=== PATIENT | male | born 1990 | race Caucasian/White ===

== ENCOUNTER 2016-05-02 15:03 | Emergency (ER) | payer OTHER ==
[2016-05-02 15:25] VITALS: BP 147/77; PULSE 76; TEMP 97.6; BMI 46.8
[2016-05-02] MEDS ORDERED: DIPHTH,PERTUSS(ACELL),TET 0.5 ML DISP.SYRIN IM ONE (16:29)
[2016-05-02] MEDS ORDERED: LIDOCAINE 1%/EPI 1:100000 (50 ML MULTI DOSE VIAL) ONE (16:42)
--- NOTE | 2016-05-02 17:02 | PDOC ---
History of Present Illness - General Chief Complaint: Injury Stated Complaint: LT HAND INJURY Time Seen by Provider: 05/02/16 16:04 - History of Present Illness Initial Comments: 05/02/16 16:28 CHIEF COMPLAINT: Laceration to left wrist HISTORY OF PRESENT ILLNESS: 86-year-old male with no past medical history presents to fast track with laceration to left wrist status post accident with kitchen knife. Patient states approximately 2 hours ago he was trying to open a box and accidentally cut himself with a kitchen knife. Patient states that the knife was clean. Patient does not remember when he had a tetanus shot last. No recent travel or sick contacts. PAST MEDICAL HISTORY: Denies past medical history FAMILY HISTORY: Denies SOCIAL HISTORY: Denies tobacco, alcohol, illicit drug use. SURGICAL HISTORY: Denies ALLERGIES: No known drug allergies REVIEW OF SYSTEMS General/Constitutional: Denies fever or chills. Denies weakness. Musculoskeletal: Denies joint or muscle swelling or pain. Denies neck or back pain. Skin: cut to wrist PHYSICAL EXAM General Appearance: Well-appearing, appropriately dressed. No apparent distress , no intoxication. Respiratory/Chest: Lungs CTAB. Cardiovascular: RRR. S1, S2. Lymphatic: No adenopathy, tenderness. Musculoskeletal/Extremities: 1.5 cm superficial laceration to left medial wrist. No tendon involvement, neurovascularly intact. Full ROM to wrist and all fingers. Normal capillary refill, radial pulse 2+. Integumentary: see msk. Appropriate color, dry, warm. No cyanosis, erythema, jaundice or rash 05/02/16 22:20 Past History - Past Medical History Allergies/Adverse Reactions: Allergies Allergy/AdvReac Type Severity Reaction Status Date / Time No Known Allergies Allergy Verified 05/02/16 15:25 Home Medications: Ambulatory Orders NK [No Known Home Medication] 05/02/16 - Psycho/Social/Smoking Cessation Hx Anxiety: No Suicidal Ideation: No Smoking History: Never smoked Have you smoked in the past 12 months: No Information on smoking cessation initiated: No Hx Alcohol Use: Yes Drug/Substance Use Hx: No Substance Use Type: None *Physical Exam - Vital Signs Last Vital Signs Temp Pulse Resp BP Pulse Ox 97.6 F 76 18 147/77 97 05/02/16 15:22 05/02/16 15:22 05/02/16 15:22 05/02/16 15:22 05/02/16 15:22 Procedures - Consent Consent obtained: Verbal - Laceration/Wound Repair Left Medial Distal Wrist Wound Length: to 2.5 cm Wound Explored: clean, no foreign body present Wound's Depth, Shape: superficial Irrigated w/ Saline: Yes Betadine Prep: Yes Anesthesia: 1% Lidocaine w/ Epi Amount of Anesthetic (ccs): 3 Wound Repaired With: Sutures Suture Size/Type: 4:0 Number of Sutures: 3 Sterile Dressing Applied: Yes (telfa non adherent dressing, dry gauze) Medical Decision Making - Medical Decision Making 05/02/16 17:04 26 yo M with no PMH presents to ED with lac to left wrist -Tdap 0.5 mL IM -suture repair (see procedure note) Advised patient to keep wound site clean and dry for 24 hours, wash with mild soap after. Advised patient to return in 7 -10 days for stitch removal. Advised patient of signs and symptoms for return to ER. Patient verbalized understanding and agrees to plan. *DC/Admit/Observation/Transfer Diagnosis at time of Disposition: Laceration of wrist Qualifiers: Encounter type: initial encounter Laterality: left Qualified Code(s): S61.512A - Laceration without foreign body of left wrist, initial encounter - Discharge Dispostion Disposition: HOME Condition at time of disposition: Stable Admit: No - Referrals Referrals: Wilda Montes [Primary Care Provider] - - Patient Instructions Printed Discharge Instructions: DI for Laceration Repair Additional Instructions: As discussed please keep clean and dry for the next 24 hours. You may wash with mild soap and water afterwards. Please return to fast track for stitch removal in 7-10 days. As discussed if you experience redness, swelling, pain, warmth, streaking, discoloration of the wound site, fever, nausea, vomiting, diarrheaor please return to the ER.
== END 2016-05-02 17:25 | disposition home or self-care (01) ==
LOC: JERFT 15:03
PROC: 0HQEXZZ Repair Left Lower Arm Skin, External Approach (ICD-10-PCS; principal; 2016-05-02)
PROC: 3E0234Z Introduction of Serum, Toxoid and Vaccine into Muscle, Percutaneous Approach (ICD-10-PCS; 2016-05-02)
DX: S61.512A Laceration without foreign body of left wrist, initial encounter (principal); W26.0XXA Contact with knife, initial encounter; Y93.89 Activity, other specified; Y92.030 Kitchen in apartment as the place of occurrence of the external cause
CPT/HCPCS: 12001-25; 90471; 90715; 99281-25

== ENCOUNTER 2018-07-23 18:34 | Observation (INO) | payer OTHER ==
--- NOTE | 2018-07-23 18:45 | PDOC ---
Rapid Medical Evaluation Chief Complaint: Pain Time Seen by Provider: 07/23/18 18:44 Medical Evaluation: Allergies Allergy/AdvReac Type Severity Reaction Status Date / Time No Known Allergies Allergy Verified 07/23/18 18:44 07/23/18 18:45 I have performed a brief in person evaluation at triage on this patient. CC: RLQ pain HPI: Pt is a 28 YO male who complains of RLQ x 5 days. Denies N/V PE: Skin: clear Lungs: clear Heart: RRR Abd: RLQ tenderness MS: Moves all extremities without difficulty Neuro: Alert and oriented Psych: Appropriate affect I have ordered: abd protocol Pt will proceed to the main ED for further evaluation. Discharge Disposition - Diagnosis Abdominal pain Qualifiers: Abdominal location: right lower quadrant Qualified Code(s): R10.31 - Right lower quadrant pain - Referrals - Patient Instructions - Post Discharge Activity
--- NOTE | 2018-07-23 19:34 | PDOC ---
*Physical Exam - Vital Signs Last Vital Signs Temp Pulse Resp BP Pulse Ox 97.8 F 89 20 146/77 100 07/23/18 18:45 07/23/18 18:45 07/23/18 18:45 07/23/18 18:45 07/23/18 18:45 ED Treatment Course - LABORATORY CBC & Chemistry Diagram: 07/23/18 20:25 07/23/18 20:25 Medical Decision Making - Medical Decision Making 07/23/18 19:34 Patient seen by the advanced practice provider under my direct supervision. Ancillary testing reviewed as necessary. I agree with plan as outlined by the advanced practice provider. *DC/Admit/Observation/Transfer Diagnosis at time of Disposition: Abdominal pain Qualifiers: Abdominal location: right lower quadrant Qualified Code(s): R10.31 - Right lower quadrant pain - Referrals - Patient Instructions - Post Discharge Activity
[2018-07-23] MEDS ORDERED: SODIUM CHLORIDE 1,000 ML IV STA (19:46)
--- NOTE | 2018-07-23 19:48 | PDOC ---
History of Present Illness - General Chief Complaint: Pain Stated Complaint: ABD. PAIN Time Seen by Provider: 07/23/18 18:44 History Source: Patient - History of Present Illness Initial Comments: 07/23/18 19:42 28 year old male with right lower quadrant x 4 days worse with laying down. denies Nausea/ vomiting, testicular pain, urinary symptoms, fever/ chills. + constipation. last bm: yesterday hard stool/ Past History - Past Medical History Allergies/Adverse Reactions: Allergies Allergy/AdvReac Type Severity Reaction Status Date / Time shrimp Allergy Verified 07/24/18 13:52 Home Medications: Ambulatory Orders Alprazolam 0.5 mg PO BID 07/24/18 Risperidone [Risperdal] 1 mg PO BID 07/24/18 Trazodone HCl 150 mg PO HS 07/24/18 COPD: No - Suicide/Smoking/Psychosocial Hx Smoking History: Never smoked Have you smoked in the past 12 months: No Hx Alcohol Use: Yes Drug/Substance Use Hx: No Substance Use Type: None Review of Systems - Review of Systems Able to Perform ROS?: Yes Is the patient limited Israeli proficient: No Constitutional: No: Symptoms Reported, See HPI, Chills, Diaphoresis, Fever, Loss of Appetite, Malaise, Night Sweats, Weakness, Weight Stable, Unintentional Wgt. Loss, Unexplained wgt Loss, Other ABD/GI: Yes: Constipated, Abdominal cramping. No: Diarrhea : No: Symptoms Reported, See HPI, Burning, Dysuria, Discharge, Frequency, Flank Pain, Hematuria, Incontinence, Pain, Urgency, Testicular Mass, Testicular Swelling, Lesions, Testicular Pain, Other Musculoskeletal: No: Symptoms Reported, See HPI, Back Pain, Gout, Joint Pain, Joint Swelling, Muscle Pain, Muscle Weakness, Neck Pain, Joint Stiffness, Other *Physical Exam - Vital Signs Last Vital Signs Temp Pulse Resp BP Pulse Ox 97.8 F 89 20 146/77 100 07/23/18 18:45 07/23/18 18:45 07/23/18 18:45 07/23/18 18:45 07/23/18 18:45 - Physical Exam General Appearance: Yes: Appropriately Dressed Respiratory/Chest: positive: Lungs Clear, Normal Breath Sounds Gastrointestinal/Abdominal: positive: Normal Bowel Sounds, Tender (RLQ abdominal pain) Extremity: positive: Normal Capillary Refill, Normal Inspection, Normal Range of Motion Integumentary: positive: Normal Color, Dry, Warm Neurologic: positive: Fully Oriented, Alert, Normal Mood/Affect ED Treatment Course - LABORATORY CBC & Chemistry Diagram: 07/25/18 06:00 07/25/18 06:00 Progress Note - Progress Note Progress Note: A: RLQ pain P: Labs CTAP: Equivocal finding on CT . Dr. yoder reviewed CT recommends observation, IVF, NPO. patient signed out to Dr. Boyle/ Kely *DC/Admit/Observation/Transfer Diagnosis at time of Disposition: Right lower quadrant abdominal pain Abdominal pain Qualifiers: Abdominal location: right lower quadrant Qualified Code(s): R10.31 - Right lower quadrant pain - Discharge Dispostion Condition at time of disposition: Improved Decision to Admit order: Yes - Referrals - Patient Instructions - Post Discharge Activity
[2018-07-23 20:46] LABS: BASO % 0.4 % (0-2.0); EOS % 0.9 % (0-4.5); HEMOGLOBIN 16.7 GM/dL (11.7-16.9); LYMPH % 26.9 % (8-40); MCHC 33.4 g/dl (32.0-35.9); MEAN CELL VOLUME 83.8 fl (80-96); MEAN PLT VOLUME 8.3 fl (7.5-11.1); MONO % 6.6 % (3.8-10.2); NEUT % 65.2 % (42.8-82.8); PLATELET COUNT 236 K/MM3 (134-434); RBC 5.97 M/mm3 (4.00-5.60); RDW 13.9 % (11.9-15.9); WHITE BLOOD COUNT 10.8 K/mm3 (4.0-10.0)
[2018-07-23 21:14] LABS: ALBUMIN 4.7 g/dl (3.4-5.0); ALK PHOS 74 U/L (45-117); ANION GAP 7 MMOL/L (8-16); BILIRUBIN,TOTAL 0.4 mg/dL (0.2-1); BLOOD UREA NITROGEN 16 mg/dL (7-18); CALCIUM 9.8 mg/dL (8.5-10.1); CHLORIDE 103 mmol/L (98-107); CO2 28 mmol/L (21-32); CREATININE 1.2 mg/dL (0.55-1.3); GLUCOSE,RANDOM 81 mg/dL (74-106); LIPASE 175 U/L (73-393); POTASSIUM 4.3 mmol/L (3.5-5.1); SGOT/AST 40 U/L (15-37); SGPT/ALT 69 U/L (13-61); SODIUM 138 mmol/L (136-145); TOT PROT 8.8 g/dl (6.4-8.2)
[2018-07-23 22:07] LABS: PH,URINE 5.5 (5.0-8.0); URINE APPEARANCE CLEAR; URINE BILIRUBIN NEGATIVE (NEGATIVE); URINE COLOR YELLOW; URINE GLUCOSE (UA) NEGATIVE (NEGATIVE); URINE KETONE 1+ (NEGATIVE); URINE LEUK ESTERASE NEGATIVE (NEGATIVE); URINE NITRITE NEGATIVE (NEGATIVE); URINE PROTEIN NEGATIVE (NEGATIVE); URINE UROBILINOGEN 0.2 mg/dL (0.2-1.0)
[2018-07-23] MEDS ORDERED: SODIUM CHLORIDE 1,000 ML IV SCH ×2 (22:15→23:30)
[2018-07-23] MEDS ORDERED: PIPERACILLIN/TAZOB 4.5 GM 4.5 GM in DEXTROSE 5%-WATER 100 ML IVPB ONE (23:29)
[2018-07-23] MEDS ORDERED: PIPERACILLIN/TAZOB 4.5 GM 4.5 GM/100 ML BAG IVPB ONE (23:37)
[2018-07-23] MEDS ORDERED: ACETAMINOPHEN 1000 MG/100 ML VIAL (NON FORMULARY) IVPB ONE (23:38)
[2018-07-24] MEDS ORDERED: ACETAMINOPHEN INJECTION 100 ML IVPB ONE ×2 (00:03→11:34)
--- NOTE | 2018-07-24 00:38 | PN ---
Teaching Attending Note Name of Resident: Santos Boyle ATTENDING PHYSICIAN STATEMENT I saw and evaluated the patient. I reviewed the resident's note and discussed the case with the resident. I agree with the resident's findings and plan as documented. SUBJECTIVE: Seen and examined; please refer to resident note for further historical details. Briefly, this is a 28 y/o male presenting to the ER with a CC of abdominal pain for 3-4 days. He has a history of unclear psych illness (Rx's for alprazolam, risperidone, trazodone per family). He is a somewhat difficult historian. Some nausea associated. Never had symptoms like this prior. No recent abx or prior surgical procedures. He is afebrile and hemodynamically stable. CT done in the ER reveals possible early appendicitis; discussed at length with Dr. Zuniga who wishes to keep patient NPO and off pain meds and antibiotics. Will be brought to the floor on observation on the medicine service with surgical consultation. 10 sys ROS done and negative aside from HPI PMH, PSH, FH, SH reviewed Home Medications Medication Instructions Recorded NK [No Known Home Medication] 05/02/16 *Pending final reconciliation OBJECTIVE: VS, labs, imaging reviewed NAD, AAO, resting in bed NC AT EOMI PERRLA RRR s1/2 no mgr Lungs CTAB, w/ sym exp Slight R-sided tenderness, ND, +BS CN2-12 wnl, no fnd Normal mood, appropriate behavior CT reviewed; shows no definitive CT evidence of acute appendicitis with equivocal minimal o mild focal wall thickening along middle third of appendix which may be artifact. Diffuse hepatic steatosis noted, minimal to mild splenomegaly ASSESSMENT AND PLAN: Patient presents with possible early appendicitis 1) ? Early Appendicitis -NPO, IVF, followup surgical consult. Expert opinion appreciated -Discussed the case with surgery; holding off on IV pain meds and abx and will monitor for symptoms. 2) Mild Transaminitis, hepatic steatosis, mild splenomegaly -Followup hepatitis panel, trend CMP. Given morbid obesity can consider ANDERSON. He is on various psych meds which could cause this, as well. -Security Patrol Driver regarding diet, etc. prior to DC 3) Underlying psych issue -Would need to confirm diagnosis but meds noted (reconciling alprazolam, risperidone, trazodone); will continue. 4) Morbid obesity -Security Patrol Driver regarding lifestyle modifications prior to DC FENA -LR@100 -PRN replete -NPO -As tolerated Full Code
[2018-07-24] MEDS ORDERED: ALPRAZolam 0.25 MG TABLET PO ONE (00:44)
[2018-07-24] MEDS ORDERED: risperiDONE 1 MG TABLET (FP) PO ONE (00:44)
[2018-07-24] MEDS ORDERED: traZODone HCL 150 MG TABLET PO ONE (00:45)
--- NOTE | 2018-07-24 01:08 | HP ---
CHIEF COMPLAINT: RLQ pain PCP: HISTORY OF PRESENT ILLNESS: Patient is a 28 y/o M w/ PMHx unspecified psychiatric issue on alprazolam, risperidone, trazodone, p/w RLQ pain x 4 days without relief. Normal BMs, no n/v , no other complaints or changes from USOH. Afebrile w/ stable vitals on presentation, labs only remarkable for AST [address] a/p showed no definitive evidence of acute appendicitis, minimal to mild focal wall thickening , and diffuse hepatic steatosis. Sx was consulted by ED and requested observation. Family at bedside adamant that patient requires strict nightly administration of all psychiatric medications for patient to be able to sleep. Recent Travel: PAST MEDICAL HISTORY: As per HPI PAST SURGICAL HISTORY: None Social History: Smoking: Alcohol: Drugs: Family History: Allergies No Known Allergies Allergy (Verified 07/23/18 18:44) HOME MEDICATIONS: Home Medications Family states: Alprazolam 0.5 Risperidone 1 Trazodone 150 Medication Instructions Recorded NK [No Known Home Medication] 05/02/16 REVIEW OF SYSTEMS As per HPI PHYSICAL EXAMINATION Vital Signs - 24 hr 07/23/18 18:45 Temperature 97.8 F Pulse Rate 89 Respiratory 20 Rate Blood Pressure 146/77 O2 Sat by Pulse 100 Oximetry (%) GENERAL: A&Ox3, NAD HEENT: NC/AT, PERRLA, EOMI, MMM NECK: Normal range of motion, supple without lymphadenopathy, JVD, or masses. LUNGS: CTA b/l HEART: RRR no m/r/g ABDOMEN: +bs, soft, significant tenderness at RLQ, no obturator or Rovsing sign UPPER EXTREMITIES: 2+ pulses, warm, well-perfused. No cyanosis. No clubbing. No peripheral edema. LOWER EXTREMITIES: 2+ pulses, warm, well-perfused. No calf tenderness. No peripheral edema. NEUROLOGICAL: agricultural equipment mechanic, motor, sensory systems w/o focal deficit PSYCHIATRIC: Cooperative, somewhat tangential and slow to respond SKIN: Warm, dry, normal turgor, no rashes or lesions noted, normal capillary refill. Laboratory Results - last 24 hr 07/23/18 07/23/18 07/23/18 20:25 20:25 21:37 WBC 10.8 H RBC 5.97 H Hgb 16.7 Hct 50.0 H MCV 83.8 MCH 28.0 MCHC 33.4 RDW 13.9 Plt Count 236 MPV 8.3 Absolute Neuts (auto) 7.1 Neutrophils % 65.2 Lymphocytes % 26.9 Monocytes % 6.6 Eosinophils % 0.9 Basophils % 0.4 Nucleated RBC % 0 Sodium 138 Potassium 4.3 Chloride 103 Carbon Dioxide 28 Anion Gap 7 L BUN 16 Creatinine 1.2 Creat Clearance w eGFR 72.09 Random Glucose 81 Calcium 9.8 Total Bilirubin 0.4 AST 40 H ALT 69 H Alkaline Phosphatase 74 Total Protein 8.8 H Albumin 4.7 Lipase 175 Urine Color Yellow Urine Appearance Clear Urine pH 5.5 Ur Specific [place] 1.023 Urine Protein Negative Urine Glucose (UA) Negative Urine Ketones 1+ H Urine Blood Negative Urine Nitrite Negative Urine Bilirubin Negative Urine Urobilinogen 0.2 Ur Leukocyte Esterase Negative ASSESSMENT/PLAN: 28 y/o M w/ PMHx unspecified psychiatric issue on alprazolam, risperidone, trazodone, p/w RLQ pain x 4 days without relief #A: -r/o appendicitis -mild transaminitis -mild paraproteinemia #P -NPO -pre-op labs -D5LR @ 100 -hepatitis panel -no further ABx, no narcotics as per Sx -NPO -trend CMP -mechanical DVT PPx -full code -observe on med/surg Visit type - Emergency Visit Emergency Visit: Yes ED Registration Date: 07/24/18 Care time: The patient presented to the Emergency Department on the above date and was hospitalized for further evaluation of their emergent condition. - New Patient This patient is new to me today: Yes Date on this admission: 07/24/18 - Critical Care Critical Care patient: No
[2018-07-24] MEDS ORDERED: ALPRAZolam 0.25 MG TABLET ONE (01:48)
[2018-07-24] MEDS ORDERED: risperiDONE 0.5 MG TABLET (FP) ONE (02:00)
[2018-07-24] MEDS: DEXTROSE 5%-LACTATED RINGERS 1,000 ML IV SCH (04:11)
[2018-07-24 06:38] LABS: BASO % 0.4 % (0-2.0); EOS % 1.4 % (0-4.5); HEMATOCRIT 42.2 % (35.4-49); HEMOGLOBIN 13.9 GM/dL (11.7-16.9); LYMPH % 33.3 % (8-40); MCH 27.2 pg (25.7-33.7); MCHC 32.9 g/dl (32.0-35.9); MEAN CELL VOLUME 82.9 fl (80-96); MEAN PLT VOLUME 8.4 fl (7.5-11.1); MONO % 5.3 % (3.8-10.2); NEUT % 59.6 % (42.8-82.8); PLATELET COUNT 195 K/MM3 (134-434); RBC 5.09 M/mm3 (4.00-5.60); RDW 13.8 % (11.9-15.9); WHITE BLOOD COUNT 8.3 K/mm3 (4.0-10.0)
[2018-07-24 07:17] LABS: ALBUMIN 3.5 g/dl (3.4-5.0); ALK PHOS 54 U/L (45-117); ANION GAP 7 MMOL/L (8-16); BILIRUBIN,TOTAL 0.3 mg/dL (0.2-1); BLOOD UREA NITROGEN 13 mg/dL (7-18); CALCIUM 8.2 mg/dL (8.5-10.1); CHLORIDE 107 mmol/L (98-107); CO2 23 mmol/L (21-32); GLUCOSE,RANDOM 188 mg/dL (74-106); MAGNESIUM 2.2 mg/dL (1.8-2.4); PHOSPHOROUS 3.1 mg/dL (2.5-4.9); POTASSIUM 3.6 mmol/L (3.5-5.1); SGOT/AST 22 U/L (15-37); SGPT/ALT 49 U/L (13-61); SODIUM 137 mmol/L (136-145); TOT PROT 6.4 g/dl (6.4-8.2)
[2018-07-24 08:03] LABS: INR 1.08 (0.83-1.09); PROTHROMBIN TIME (PATIENT) 12.7 SEC (9.7-13.0)
[2018-07-24 08:06] LABS: ACTIVATED PTT 38.1 SECONDS (25.2-36.5)
[2018-07-24] MEDS ORDERED: CEFTRIAXONE 1 GM in DEXTROSE 5%-WATER - 100 ML IVPB SCH (10:15)
--- NOTE | 2018-07-24 10:32 | EKG ---
Test Reason : Blood Pressure : / mmHG Vent. Rate : 071 BPM Atrial Rate : 071 BPM P-R Int : 126 ms QRS Dur : 084 ms QT Int : 400 ms P-R-T Axes : 018 028 021 degrees QTc Int : 434 ms POOR DATA QUALITY, INTERPRETATION MAY BE ADVERSELY AFFECTED NORMAL SINUS RHYTHM NONSPECIFIC ST ABNORMALITY ABNORMAL ECG NO PREVIOUS ECGS AVAILABLE Confirmed by CRISPIN DRISCOLL, RODDY ([id number]) on 07/24/2018 10:31:58 AM Referred By: Confirmed By:RODDY ROA MD
[2018-07-24] MEDS: ACETAMINOPHEN 1000 MG/100 ML VIAL (NON FORMULARY) IVPB PRN ×2 (11:35→21:00)
[2018-07-24] MEDS ORDERED: FLU VACCINE QUAD 60 MCG/0.5 ML (MDV 18-19) IM ONE (13:46)
--- NOTE | 2018-07-24 15:49 | PN ---
Teaching Attending Note Name of Resident: Ayla Fonseca ATTENDING PHYSICIAN STATEMENT I saw and evaluated the patient. I reviewed the resident's note and discussed the case with the resident. I agree with the resident's findings and plan as documented. SUBJECTIVE: no fever or chills. reports R sided abd pain x 5 days . has no N/V. OBJECTIVE: NAD. CV: RRR, no MRG Lungs: CTAB Abd: soft, TTP in RUQ, RLQ, Neg Duval's . no rebound tenderness. Ext: no edema ASSESSMENT AND PLAN: 28 y/o man with h/o psychiatric illness who presented with abd pain x 5 days . 1- Abd pain, unclear etiology. CT scan reviewed. no convincing evidence of acute appendicitis. Neg Duval's , LFTS normalized. has fatty liver on CT. doubt acute cholecystitis. - d/w Dr. Gordillo. Monitor off Abx. - IVF - NPO for now - pain mgt with tylenol - check US of RUQ. - hep panel pending 2- Psychiatric illness: He reports anxiety but not clear on actual indication for other prescribed meds - will resume his psych meds - f/u as out pt with psych 3- hold DVT px for now , ambulatory, ? sx
--- NOTE | 2018-07-24 16:14 | PN ---
Physical Exam: SUBJECTIVE: Patient seen and examined at bedside this morning. Patient is a 28 year old male with history of unspecified psychiatric history ( Psychiatrist: Dr. Lisa Obrien [phone]), presented to the ED due to a 4- day history of RLQ pain. Patient reported pain is constant 7/10 sharp on the RLQ area, with no aggravating or alleviating factors. He denies fever, chills, headache, nausea, vomiting, diarrhea, urinary symptoms. OBJECTIVE: Vital Signs Temperature 97.6 F 07/24/18 15:17 Pulse Rate 74 07/24/18 15:17 Respiratory Rate 18 07/24/18 15:17 Blood Pressure 138/79 07/24/18 15:17 O2 Sat by Pulse Oximetry (%) 98 07/24/18 12:56 GENERAL: The patient is awake, alert, and fully oriented, in no acute distress. HEAD: Normal with no signs of trauma. EYES: PERRLA, EOMI, sclera anicteric, conjunctiva clear. ENT: oropharynx clear without exudates, moist mucous membranes. NECK: Trachea midline, full range of motion, supple. LUNGS: Breath sounds equal, clear to auscultation bilaterally. HEART: Regular rate and rhythm, S1, S2 without murmur, rub or gallop. ABDOMEN: Soft, obese, +RUQ/RLQ tenderness, nondistended, normoactive bowel sounds, no guarding, no hepatosplenomegaly. EXTREMITIES: 2+ pulses, warm, well-perfused, no edema. NEUROLOGICAL: Cranial nerves II through XII grossly intact. Normal speech, gait not observed. PSYCH: Normal mood, normal affect. SKIN: Warm, dry, normal turgor, no rashes or lesions noted Laboratory Results - last 24 hr 07/23/18 07/23/18 07/23/18 20:25 20:25 21:37 WBC 10.8 H RBC 5.97 H Hgb 16.7 Hct 50.0 H MCV 83.8 MCH 28.0 MCHC 33.4 RDW 13.9 Plt Count 236 MPV 8.3 Absolute Neuts (auto) 7.1 Neutrophils % 65.2 Lymphocytes % 26.9 Monocytes % 6.6 Eosinophils % 0.9 Basophils % 0.4 Nucleated RBC % 0 PT with INR INR PTT (Actin FS) Sodium 138 Potassium 4.3 Chloride 103 Carbon Dioxide 28 Anion Gap 7 L BUN 16 Creatinine 1.2 Creat Clearance w eGFR 72.09 Random Glucose 81 Calcium 9.8 Phosphorus Magnesium Total Bilirubin 0.4 AST 40 H ALT 69 H Alkaline Phosphatase 74 Total Protein 8.8 H Albumin 4.7 Lipase 175 Urine Color Yellow Urine Appearance Clear Urine pH 5.5 Ur Specific [place] 1.023 Urine Protein Negative Urine Glucose (UA) Negative Urine Ketones 1+ H Urine Blood Negative Urine Nitrite Negative Urine Bilirubin Negative Urine Urobilinogen 0.2 Ur Leukocyte Esterase Negative Blood Type Antibody Screen 07/24/18 07/24/18 07/24/18 00:55 05:20 05:20 WBC 8.3 RBC 5.09 Hgb 13.9 Hct 42.2 D MCV 82.9 MCH 27.2 MCHC 32.9 RDW 13.8 Plt Count 195 MPV 8.4 Absolute Neuts (auto) 5.0 Neutrophils % 59.6 Lymphocytes % 33.3 D Monocytes % 5.3 Eosinophils % 1.4 Basophils % 0.4 Nucleated RBC % 0 PT with INR INR PTT (Actin FS) Sodium 137 Potassium 3.6 Chloride 107 Carbon Dioxide 23 Anion Gap 7 L BUN 13 Creatinine 1.0 Creat Clearance w eGFR 88.98 Random Glucose 188 H Calcium 8.2 L Phosphorus 3.1 Magnesium 2.2 Total Bilirubin 0.3 AST 22 ALT 49 Alkaline Phosphatase 54 Total Protein 6.4 Albumin 3.5 Lipase Urine Color Urine Appearance Urine pH Ur Specific [place] Urine Protein Urine Glucose (UA) Urine Ketones Urine Blood Urine Nitrite Urine Bilirubin Urine Urobilinogen Ur Leukocyte Esterase Blood Type O NEGATIVE Antibody Screen Negative 07/24/18 07/24/18 07/24/18 07:05 08:40 10:12 WBC RBC Hgb Hct MCV MCH MCHC RDW Plt Count MPV Absolute Neuts (auto) Neutrophils % Lymphocytes % Monocytes % Eosinophils % Basophils % Nucleated RBC % PT with INR 12.70 INR 1.08 PTT (Actin FS) 38.1 H Sodium Potassium Chloride Carbon Dioxide Anion Gap BUN Creatinine Creat Clearance w eGFR Random Glucose Calcium Phosphorus Magnesium Total Bilirubin AST ALT Alkaline Phosphatase Total Protein Albumin Lipase Urine Color Urine Appearance Urine pH Ur Specific [place] Urine Protein Urine Glucose (UA) Urine Ketones Urine Blood Urine Nitrite Urine Bilirubin Urine Urobilinogen Ur Leukocyte Esterase Blood Type O NEGATIVE Cancelled Antibody Screen Negative Active Medications Generic Name Dose Route Start Last Admin Trade Name Freq PRN Reason Stop Dose Admin Acetaminophen 1,000 mg 07/24/18 10:41 07/24/18 11:35 Ofirmev Injection - IVPB 1,000 mg Q6H PRN Administration PAIN Dextrose/Lactated Ringer's 1,000 mls @ 100 mls/hr 07/24/18 01:15 07/24/18 04: 11 D5-Lr - IV 100 mls/hr ASDIR AMIE Administration ASSESSMENT/PLAN: Patient is a 28 year old male with history of unspecified psychiatric history, presented to the ED due to a 4-day history of RLQ pain. #Right-sided abdominal pain -CTAP: No evidence of acute appendicitis. Equivocal minimal to mild focal wall thickening along the middle third of appendix, may be artifactual. Prominent diffuse hepatic steatosis. Minimal to mild splenomegaly. -Surgery (Dr. Zuniga) consulted -Will observe patient while off antibiotics -IV hydration -NPO except meds for now -Pain control with IV Tylenol -RUQ ultrasound ordered -Hepatitis panel #Transaminitis: improved -Continue IV fluids -Will order RUQ ultrasound #Psychiatric history -follows up with Dr. Lisa Obrien -awaiting callback -Continue home Risperidone, Trazodone and Alprazolam #Morbid obesity -Cam Maker on lifestyle modifications #FEN -IV LR @100cc/hr -Electrolytes wnl, routine bmp monitoring -NPO except meds #Prophylaxis -Early ambulation -will hold chemical ppx for possible surgery #Disposition -full code -med surg obs Visit type - Emergency Visit Emergency Visit: Yes ED Registration Date: 07/24/18 Care time: The patient presented to the Emergency Department on the above date and was hospitalized for further evaluation of their emergent condition. - New Patient This patient is new to me today: Yes Date on this admission: 07/24/18 - Critical Care Critical Care patient: No
[2018-07-24] MEDS: ALPRAZolam 0.25 MG TABLET PO SCH (21:02)
[2018-07-24] MEDS: risperiDONE 1 MG TABLET (FP) PO SCH (21:02)
--- NOTE | 2018-07-24 21:44 | CONSULT ---
Consult Consult Specialty:: General Surgery Referred by:: ER Reason for Consultation:: RLQ pain, ?appendicitis - History of Present Illness Chief Complaint: RLQ pain, nausea History of Present Illness: 28yo M with psychiatric history on meds, morbid obesity, no previous surgeries, presented to ER yesterday with maybe a week's worth of RLQ/right lateral abdominal pain, initially beginning higher up on right flank, eventually radiating downward toward RLQ, associated with pain when breathing, walking, and some nausea but no vomiting. In ER, he had wbc 10, no blood on UA, and CT with PO/IV contrast showed no clear evidence of appendicitis, but he was starch mangle tender in RLQ. Surgery was asked to assess. He was admitted OBS to medicine without narcotics or antibiotics. He is seen and examined in bed with mother and twin brother present. He states he thinks the pain first started within a day of having had a meal made by his mother of fish, at which he was eating some of the small bones, thinking they wouldn't hurt him. He doesn't remember the exact day, but the pain started small , and has persisted and progressively gotten worse, as noted above. He continues to have soft regular BMs at home, but is now having loose BMs, likely related to PO contrast from yesterday. He describes some chills just recently in hospital but not at home. No dysuria, no groin bulge, no trauma to the region. Tylenol is not fully relieving the pain. Today, his wbc is down to 8. He also had RUQ US showing only fatty liver, no gallstones, essentially unremarkable. - History Source History Provided By: Patient Limitations to Obtaining History: No Limitations - Past Medical History Gastrointestinal: Yes: Other (morbid obesity) Psych: Yes: Anxiety, Other (takes meds regularly, unclear 'diagnosis') - Past Surgical History Past Surgical History: Yes: None - Alcohol/Substance Use Hx Alcohol Use: Yes (social - stopped a while ago when started taking alprazolam ) History of Substance Use: reports: None - Smoking History Smoking history: Former smoker (occasional use only in past) Have you smoked in the past 12 months: No - Social History Usual Living Arrangement: With Parent ADL: Independent Home Medications - Allergies Allergies/Adverse Reactions: Allergies Allergy/AdvReac Type Severity Reaction Status Date / Time shrimp Allergy Verified 07/24/18 13:52 - Home Medications Home Medications: Ambulatory Orders Alprazolam 0.5 mg PO BID 07/24/18 Risperidone [Risperdal] 1 mg PO BID 07/24/18 Trazodone HCl 150 mg PO HS 07/24/18 Home Medications (free text): takes alprazolam only when needed Family Disease History - Family Disease History Family History: Denies Other Family History: he has an identical twin brother with no health problems other than obesity Review of Systems - Review of Systems Constitutional: denies: Chills, Fever Eyes: reports: Other (wears glasses). denies: Recent Change in Vision HENT: denies: Difficult Swallowing, Nasal Congestion, Throat Pain Neck: denies: Swollen Glands, Tenderness Cardiovascular: denies: Chest Pain, Palpitations Respiratory: reports: Other (pain with breathing/deep breaths in R side/with hpi ). denies: Cough, SOB Gastrointestinal: reports: Abdominal Pain (with hpi), Nausea (some with hpi). denies: Constipation, Diarrhea, Vomiting Genitourinary: denies: Burning, Dysuria Musculoskeletal: denies: Back Pain, Joint Pain, Muscle Pain Integumentary: denies: Change in Color, Rash Neurological: denies: Dizziness, Headache, Unsteady Gait (pain with walking though on R side) Psychiatric: reports: Anxiety. denies: Depression Physical Exam Vital Signs: Vital Signs Temperature 98.0 F 07/24/18 20:55 Pulse Rate 86 07/24/18 20:55 Respiratory Rate 18 07/24/18 20:55 Blood Pressure 138/86 07/24/18 20:55 O2 Sat by Pulse Oximetry (%) 100 07/24/18 17:14 Constitutional: Yes: No Distress, Calm, Obese Eyes: Yes: Conjunctiva Clear, EOM Intact HENT: Yes: Atraumatic, Normocephalic Neck: Yes: Supple, Trachea Midline Cardiovascular: Yes: Regular Rate and Rhythm Respiratory: Yes: Regular, CTA Bilaterally Gastrointestinal: Yes: Normal Bowel Sounds, Soft, Abdomen, Obese, Tenderness ( RLQ/R lateral abd/mild RUQ - referred from upper toward lower; no sig tenderness midline or left side). No: Hernia (none appreciated), Tenderness, Rebound ...Rectal Exam: Yes: Deferred Renal/: Yes: CVA Tenderness - Right (mild tenderness from right lateral abd/ side around to CVA region). No: CVA Tenderness - Left Musculoskeletal: No: Joint Stiffness, Joint Swelling Extremities: No: Cool, Cyanosis Edema: No Peripheral Pulses WNL: Yes Integumentary: No: Jaundice, Rash Neurological: Yes: Alert, Oriented Psychiatric: Yes: Alert, Oriented Labs: CBC, BMP 07/24/18 05:20 07/24/18 05:20 CMP Sodium 137 mmol/L (136-145) 07/24/18 05:20 Potassium 3.6 mmol/L (3.5-5.1) 07/24/18 05:20 Chloride 107 mmol/L (98-107) 07/24/18 05:20 Carbon Dioxide 23 mmol/L (21-32) 07/24/18 05:20 Anion Gap 7 MMOL/L (8-16) L 07/24/18 05:20 BUN 13 mg/dL (7-18) 07/24/18 05:20 Creatinine 1.0 mg/dL (0.55-1.3) 07/24/18 05:20 Creat Clearance w eGFR 88.98 (>60) 07/24/18 05:20 Random Glucose 188 mg/dL (74-106) H 07/24/18 05:20 Calcium 8.2 mg/dL (8.5-10.1) L 07/24/18 05:20 Phosphorus 3.1 mg/dL (2.5-4.9) 07/24/18 05:20 Magnesium 2.2 mg/dL (1.8-2.4) 07/24/18 05:20 Total Bilirubin 0.3 mg/dL (0.2-1) 07/24/18 05:20 AST 22 U/L (15-37) 07/24/18 05:20 ALT 49 U/L (13-61) 07/24/18 05:20 Alkaline Phosphatase 54 U/L (45-117) 07/24/18 05:20 Total Protein 6.4 g/dl (6.4-8.2) 07/24/18 05:20 Albumin 3.5 g/dl (3.4-5.0) 07/24/18 05:20 Lipase 175 U/L (73-393) 07/23/18 20:25 INR, PTT INR 1.08 (0.83-1.09) 07/24/18 07:05 Urine Test Results Urine Color Yellow 07/23/18 21:37 Urine Appearance Clear 07/23/18 21:37 Urine pH 5.5 (5.0-8.0) 07/23/18 21:37 Ur Specific Marshall 1.023 (1.010-1.035) 07/23/18 21:37 Urine Protein Negative (NEGATIVE) 07/23/18 21:37 Urine Glucose (UA) Negative (NEGATIVE) 07/23/18 21:37 Urine Ketones 1+ (NEGATIVE) H 07/23/18 21:37 Urine Blood Negative (NEGATIVE) 07/23/18 21:37 Urine Nitrite Negative (NEGATIVE) 07/23/18 21:37 Urine Bilirubin Negative (NEGATIVE) 07/23/18 21:37 Ur Leukocyte Esterase Negative (NEGATIVE) 07/23/18 21:37 wbc down from 10 yesterday Imaging - Results Cat Scan: Report Reviewed, Image Reviewed (images reviewed and discussed with Dr. Warren - oral contrast throughout right colon, distal SB, some further; appendix appears to fill partially with contrast and may fold on itself somewhat partway out, but no periappendiceal inflammatory findings in fat - on careful re-review of images, cannot identify any area suspicious for FB or microperforation that would be consistent with fishbone, given enteral contrast) Ultrasound: Report Reviewed, Image Reviewed (images reviewed - no gallstones, fatty liver, normal cbd) Problem List - Problems (1) Right lower quadrant abdominal pain Assessment/Plan: admitted observation status on medicine no antibiotics, no narcotics, NPO/IVF imaging, history and exam not suggestive of appendicitis given pt's association of onset of symptoms shortly after having eaten meal with small fish bones, have to consider FB microperforation or lodged in bowel, but obscured by enteral contrast on CT scan he seems to be evacuating contrast with loose BMs would consider reimaging tomorrow with CT WITHOUT contrast to reassess right abdomen for evidence of FB possibly with plain film first to ensure no residual oral contrast in right colon/right abdomen would also discuss with GI, +/- repeat imaging, as to whether there would be any role for colonoscopy in assessing right side for evidence of FB? will discuss with primary team in am keep NPO/IVF for now Code(s): R10.31 - RIGHT LOWER QUADRANT PAIN (2) Right lower quadrant abdominal tenderness without rebound tenderness Code(s): R10.813 - RIGHT LOWER QUADRANT ABDOMINAL TENDERNESS (3) Morbid obesity with BMI of 45.0-49.9, adult Code(s): E66.01 - MORBID (SEVERE) OBESITY DUE TO EXCESS CALORIES; Z68.42 - BODY MASS INDEX (BMI) 45.0-49.9, ADULT
[2018-07-24] MEDS: traZODone HCL 50 MG TABLET (FP) PO SCH (22:49)
[2018-07-25] MEDS: DEXTROSE 5%-LACTATED RINGERS 1,000 ML IV SCH ×2 (03:40→16:04)
[2018-07-25 04:11] LABS: HBSAG SCREEN Negative (Negative); HEP B CORE AB, TOT Negative (Negative)
[2018-07-25 06:35] LABS: BASO % 0.3 % (0-2.0); EOS % 1.6 % (0-4.5); HEMATOCRIT 44.1 % (35.4-49); HEMOGLOBIN 14.7 GM/dL (11.7-16.9); LYMPH % 30.7 % (8-40); MCH 27.6 pg (25.7-33.7); MCHC 33.3 g/dl (32.0-35.9); MEAN CELL VOLUME 82.9 fl (80-96); MEAN PLT VOLUME 8.2 fl (7.5-11.1); NEUT % 59.4 % (42.8-82.8); PLATELET COUNT 208 K/MM3 (134-434); RBC 5.31 M/mm3 (4.00-5.60); WHITE BLOOD COUNT 8.9 K/mm3 (4.0-10.0)
[2018-07-25 07:01] LABS: ANION GAP 8 MMOL/L (8-16); BLOOD UREA NITROGEN 10 mg/dL (7-18); CALCIUM 9.5 mg/dL (8.5-10.1); CHLORIDE 107 mmol/L (98-107); CO2 26 mmol/L (21-32); CREATININE 1.1 mg/dL (0.55-1.3); GLUCOSE,RANDOM 93 mg/dL (74-106); MAGNESIUM 2.3 mg/dL (1.8-2.4); PHOSPHOROUS 3.5 mg/dL (2.5-4.9); POTASSIUM 3.9 mmol/L (3.5-5.1); SODIUM 141 mmol/L (136-145)
[2018-07-25] MEDS: risperiDONE 1 MG TABLET (FP) PO SCH ×2 (09:57→21:09)
[2018-07-25] MEDS: ALPRAZolam 0.25 MG TABLET PO SCH ×2 (09:57→21:09)
[2018-07-25] MEDS: ACETAMINOPHEN 1000 MG/100 ML VIAL (NON FORMULARY) IVPB PRN (14:48)
--- NOTE | 2018-07-25 15:53 | PN ---
Physical Exam: SUBJECTIVE: Patient seen and examined at bedside this morning. No acute events overnight. Patient still reports RUQ pain. Has had bowel movements. Denies fever , chills, headache, nausea, vomiting, chest pain, shortness of breath, diarrhea , urinary symptoms. OBJECTIVE: Vital Signs Temperature 97.5 F L 07/25/18 15:00 Pulse Rate 74 07/25/18 15:00 Respiratory Rate 18 07/25/18 15:00 Blood Pressure 120/80 07/25/18 15:00 O2 Sat by Pulse Oximetry (%) 100 07/25/18 04:00 GENERAL: The patient is awake, alert, and fully oriented, in no acute distress. HEAD: Normal with no signs of trauma. EYES: PERRLA, EOMI, sclera anicteric, conjunctiva clear. ENT: oropharynx clear without exudates, moist mucous membranes. NECK: Trachea midline, full range of motion, supple. LUNGS: Breath sounds equal, clear to auscultation bilaterally. HEART: Regular rate and rhythm, S1, S2 without murmur, rub or gallop. ABDOMEN: Soft, obese, +RUQ tenderness, nondistended, normoactive bowel sounds, no guarding. EXTREMITIES: 2+ pulses, warm, well-perfused, no edema. NEUROLOGICAL: Cranial nerves II through XII grossly intact. Normal speech, gait not observed. PSYCH: Normal mood, normal affect. SKIN: Warm, dry, normal turgor, no rashes or lesions noted Laboratory Results - last 24 hr 07/24/18 07/25/18 07/25/18 05:20 06:00 06:00 WBC 8.9 RBC 5.31 Hgb 14.7 Hct 44.1 MCV 82.9 MCH 27.6 MCHC 33.3 RDW 14.0 Plt Count 208 MPV 8.2 Absolute Neuts (auto) 5.3 Neutrophils % 59.4 Lymphocytes % 30.7 Monocytes % 8.0 Eosinophils % 1.6 Basophils % 0.3 Nucleated RBC % 0 Sodium 141 Potassium 3.9 Chloride 107 Carbon Dioxide 26 Anion Gap 8 BUN 10 Creatinine 1.1 Creat Clearance w eGFR 79.71 Random Glucose 93 Calcium 9.5 Phosphorus 3.5 Magnesium 2.3 Hepatitis A Ab Total Negative Hep Bs Antigen Negative Hep Bs Antibody Reactive Hep B Core Total Ab Negative Active Medications Generic Name Dose Route Start Last Admin Trade Name Freq PRN Reason Stop Dose Admin Acetaminophen 1,000 mg 07/24/18 10:41 07/25/18 14:48 Ofirmev Injection - IVPB 1,000 mg Q6H PRN Administration PAIN Alprazolam 0.5 mg 07/24/18 22:00 07/25/18 09:57 Xanax - PO 0.5 mg BID AMIE Administration Dextrose/Lactated Ringer's 1,000 mls @ 100 mls/hr 07/24/18 01:15 07/25/18 03: 40 D5-Lr - IV 100 mls/hr ASDIR AMIE Administration Risperidone 1 mg 07/24/18 22:00 07/25/18 09:57 Risperdal - PO 1 mg BID AMIE Administration Trazodone HCl 150 mg 07/24/18 22:00 07/24/18 22:49 Desyrel - PO 150 mg HS AMIE Administration ASSESSMENT/PLAN: Patient is a 28 year old male with history of unspecified psychiatric history, presented to the ED due to a 4-day history of RLQ pain. #RUQ abdominal pain -CTAP: No evidence of acute appendicitis. Equivocal minimal to mild focal wall thickening along the middle third of appendix, may be artifactual. Prominent diffuse hepatic steatosis. Minimal to mild splenomegaly. -Surgery (Dr. Zuniga) consulted -Will observe patient while off antibiotics -IV hydration -NPO except meds for now -Pain control with IV Tylenol -RUQ ultrasound - diffuse hepatic steatosis -Abdominal xray ordered still showed the contrast in the colon -Hep A and B negative, HCV pending #Transaminitis: improved -Continue IV fluids #Psychiatric history -follows up with Dr. Lisa Obrien -awaiting callback -Continue home Risperidone, Trazodone and Alprazolam #Morbid obesity -Seat Mender on lifestyle modifications #FEN -IV LR @100cc/hr -Electrolytes wnl, routine bmp monitoring -NPO except meds #Prophylaxis -Early ambulation -will hold chemical ppx for possible surgery #Disposition -full code -med surg obs Visit type - Emergency Visit Emergency Visit: Yes ED Registration Date: 07/24/18 Care time: The patient presented to the Emergency Department on the above date and was hospitalized for further evaluation of their emergent condition. - New Patient This patient is new to me today: No - Critical Care Critical Care patient: No
--- NOTE | 2018-07-25 18:06 | PN ---
Progress Note, Physician History of Present Illness: Pt sleeping. Did not wake up for exam. Mother at bedside. Per nurse and medical team, pt has been uncomfortable at times, still with pain, tenderness. AXR done earlier today showed residual oral contrast in right and transverse colon. No CT yet. - Current Medication List Current Medications: Active Medications Acetaminophen (Ofirmev Injection -) 1,000 mg IVPB Q6H PRN PRN Reason: PAIN Last Admin: 07/25/18 14:48 Dose: 1,000 mg Alprazolam (Xanax -) 0.5 mg PO BID [facility] [place] Last Admin: 07/25/18 09:57 Dose: 0.5 mg Dextrose/Lactated Ringer's (D5-Lr -) 1,000 mls @ 100 mls/hr IV ASDIR [facility] [place] Last Admin: 07/25/18 16:04 Dose: 100 mls/hr Risperidone (Risperdal -) 1 mg PO BID [facility] [place] Last Admin: 07/25/18 09:57 Dose: 1 mg Trazodone HCl (Desyrel -) 150 mg PO HS [facility] [place] Last Admin: 07/24/18 22:49 Dose: 150 mg - Objective Vital Signs: Vital Signs Temperature 98.3 F 07/25/18 16:59 Pulse Rate 72 07/25/18 16:59 Respiratory Rate 20 07/25/18 16:59 Blood Pressure 119/68 07/25/18 16:59 O2 Sat by Pulse Oximetry (%) 100 07/25/18 04:00 Constitutional: Yes: No Distress, Calm, Obese HENT: Yes: Atraumatic, Normocephalic Gastrointestinal: Yes: Soft, Abdomen, Obese. No: Tenderness (did not wake up to palpation of abdomen, including RLQ/R lateral) Extremities: No: Cool, Cyanosis Integumentary: No: Jaundice, Rash Neurological: Yes: Other (currently sleeping) Labs: CBC, BMP 07/25/18 06:00 07/25/18 06:00 - ....Imaging X-ray: Report Reviewed, Image Reviewed (AXR reviewed - some residual contrast in R and transverse colon, little in rectum) Problem List - Problems (1) Right lower quadrant abdominal pain Assessment/Plan: admitted observation status on medicine no antibiotics, no narcotics, NPO/IVF imaging, history and exam not suggestive of appendicitis given pt's association of onset of symptoms shortly after having eaten meal with small fish bones, have to consider FB microperforation or lodged in bowel, but obscured by enteral contrast on CT scan he has evacuated most of contrast, but there is still some on right side would consider reimaging when contrast clear from right with CT WITHOUT contrast to reassess right abdomen for evidence of FB plain films can assess for residual oral contrast in right colon/right abdomen discussed with Dr. Louise might consider cleaning out rest of colon? can recheck tomorrow first Code(s): R10.31 - RIGHT LOWER QUADRANT PAIN (2) Right lower quadrant abdominal tenderness without rebound tenderness Code(s): R10.813 - RIGHT LOWER QUADRANT ABDOMINAL TENDERNESS (3) Morbid obesity with BMI of 45.0-49.9, adult Code(s): E66.01 - MORBID (SEVERE) OBESITY DUE TO EXCESS CALORIES; Z68.42 - BODY MASS INDEX (BMI) 45.0-49.9, ADULT
--- NOTE | 2018-07-25 18:42 | PN ---
Teaching Attending Note Name of Resident: Neris Bender ATTENDING PHYSICIAN STATEMENT I saw and evaluated the patient. I reviewed the resident's note and discussed the case with the resident. I agree with the resident's findings and plan as documented. SUBJECTIVE: Seen and examined at bedside, feeling anxious, still with RLQ tenderness, nausea , no vomiting. Moving bowels. OBJECTIVE: Vital Signs Period Temp Pulse Resp BP Sys/De [place] Pulse Ox Last 24 Hr 97.5 F-98.3 F 60-86 18-20 119-138/68-86 100-100 Active Medications Generic Name Dose Route Start Last Admin Trade Name Freq PRN Reason Stop Dose Admin Acetaminophen 1,000 mg 07/24/18 10:41 07/25/18 14:48 Ofirmev Injection - IVPB 1,000 mg Q6H PRN Administration PAIN Alprazolam 0.5 mg 07/24/18 22:00 07/25/18 09:57 Xanax - PO 0.5 mg BID AMIE Administration Dextrose/Lactated Ringer's 1,000 mls @ 100 mls/hr 07/24/18 01:15 07/25/18 16: 04 D5-Lr - IV 100 mls/hr ASDIR AMIE Administration Risperidone 1 mg 07/24/18 22:00 07/25/18 09:57 Risperdal - PO 1 mg BID AMIE Administration Trazodone HCl 150 mg 07/24/18 22:00 07/24/18 22:49 Desyrel - PO 150 mg HS AMIE Administration Laboratory Results - last 24 hr 07/24/18 07/25/18 07/25/18 05:20 06:00 06:00 WBC 8.9 RBC 5.31 Hgb 14.7 Hct 44.1 MCV 82.9 MCH 27.6 MCHC 33.3 RDW 14.0 Plt Count 208 MPV 8.2 Absolute Neuts (auto) 5.3 Neutrophils % 59.4 Lymphocytes % 30.7 Monocytes % 8.0 Eosinophils % 1.6 Basophils % 0.3 Nucleated RBC % 0 Sodium 141 Potassium 3.9 Chloride 107 Carbon Dioxide 26 Anion Gap 8 BUN 10 Creatinine 1.1 Creat Clearance w eGFR 79.71 Random Glucose 93 Calcium 9.5 Phosphorus 3.5 Magnesium 2.3 Hepatitis A Ab Total Negative Hep Bs Antigen Negative Hep Bs Antibody Reactive Hep B Core Total Ab Negative ALL IMAGING REPORTS REVIEWED PHYSICAL EXAM: General: NAD CVS: s1s2, rrr, no mrg Lungs: CTA bl no w/r/r, unlabored Abdomen: rlq mild tenderness to palpation obese abdomen ext: no cce ASSESSMENT AND PLAN: 28 year old male presented to the ED due to a 4-day history of RLQ pain 1) RLQ pain-unclear etiology, possible FB ingestion -slightly improved, patient nontoxic, no evidence of appendicitis -repeat xray with some contrast still in colon -repeat in AM and check noncontrast CT abdomen -no need for GI eval at this time -IVF -keep NPO -no indication for abx 2) Psych d/o unclear which type -follows up with Dr. Lisa Obrien outpatient -Continue with current medications 3) Morbid Obesity -patient is a candidate for bariatric surgery -should followup closely outpatient
[2018-07-25] MEDS ORDERED: IBUPROFEN 600 MG TABLET (FP) PO ONE (20:46)
[2018-07-25] MEDS: traZODone HCL 50 MG TABLET (FP) PO SCH (22:39)
[2018-07-26] MEDS: ALPRAZolam 0.25 MG TABLET PO SCH ×2 (09:51→21:40)
[2018-07-26] MEDS: risperiDONE 1 MG TABLET (FP) PO SCH ×2 (09:51→21:40)
[2018-07-26] MEDS ORDERED: IBUPROFEN 400 MG TABLET (FP) PO PRN (11:46)
--- NOTE | 2018-07-26 12:11 | PN ---
Progress Note, Physician History of Present Illness: Suspect possible fish bone/FB stuck somewhere causing pain. Pt seen and examined in bed, family at bedside. Pt still c/o pain in right lateral abdomen. AXR pending today to see if still any contrast in right side. - Current Medication List Current Medications: Active Medications Acetaminophen (Ofirmev Injection -) 1,000 mg IVPB Q6H PRN PRN Reason: PAIN Last Admin: 07/25/18 14:48 Dose: 1,000 mg Alprazolam (Xanax -) 0.5 mg PO BID [facility] Last Admin: 07/26/18 09:51 Dose: 0.5 mg Dextrose/Lactated Ringer's (D5-Lr -) 1,000 mls @ 100 mls/hr IV ASDIR [facility] Last Admin: 07/25/18 16:04 Dose: 100 mls/hr Ibuprofen (Motrin -) 400 mg PO Q6H PRN PRN Reason: FEVER Risperidone (Risperdal -) 1 mg PO BID [facility] Last Admin: 07/26/18 09:51 Dose: 1 mg Trazodone HCl (Desyrel -) 150 mg PO HS [facility] Last Admin: 07/25/18 22:39 Dose: 150 mg - Objective Vital Signs: Vital Signs Temperature 98.2 F 07/26/18 05:33 Pulse Rate 81 07/26/18 05:33 Respiratory Rate 20 07/26/18 05:33 Blood Pressure 128/85 07/26/18 05:33 O2 Sat by Pulse Oximetry (%) 100 07/25/18 04:00 Constitutional: Yes: No Distress, Calm, Obese Eyes: Yes: Conjunctiva Clear, EOM Intact HENT: Yes: Atraumatic, Normocephalic Gastrointestinal: Yes: Soft, Abdomen, Obese, Tenderness (right lateral abdomen, little less anteriorly RLQ/RUQ, no R/G) Extremities: No: Cool, Cyanosis Integumentary: No: Jaundice, Rash Neurological: Yes: Alert, Oriented Labs: no new labs - ....Imaging X-ray: Pending (AXR to r/o residual contrast in right colon) Problem List - Problems (1) Right lower quadrant abdominal pain Assessment/Plan: admitted observation status on medicine no antibiotics, no narcotics, NPO/IVF imaging, history and exam not suggestive of appendicitis given pt's association of onset of symptoms shortly after having eaten meal with small fish bones, have to consider FB microperforation or lodged in bowel, but obscured by enteral contrast on CT scan he has evacuated most of contrast, but there is still some on right side as of AXR yesterday would consider reimaging when contrast clear from right with CT WITHOUT contrast to reassess right abdomen for evidence of FB repeat AXR pending to assess for residual oral contrast in right colon/right abdomen seen and discussed with Dr. Vigil if AXR shows contrast still present, would give Golytely to completely empty bowels will f/u Code(s): R10.31 - RIGHT LOWER QUADRANT PAIN (2) Right lower quadrant abdominal tenderness without rebound tenderness Code(s): R10.813 - RIGHT LOWER QUADRANT ABDOMINAL TENDERNESS (3) Morbid obesity with BMI of 45.0-49.9, adult Code(s): E66.01 - MORBID (SEVERE) OBESITY DUE TO EXCESS CALORIES; Z68.42 - BODY MASS INDEX (BMI) 45.0-49.9, ADULT
--- NOTE | 2018-07-26 14:09 | PN ---
Teaching Attending Note Name of Resident: Neris Bender ATTENDING PHYSICIAN STATEMENT I saw and evaluated the patient. I reviewed the resident's note and discussed the case with the resident. I agree with the resident's findings and plan as documented. SUBJECTIVE: No fever or chills, con to have R sided abd pain, but better compared to before OBJECTIVE: NAD. CV: RRR, no MRG Lungs: CTAB Abd: soft, TTP in RUQ, RLQ . no rebound tenderness. Neg psoas. Ext: no edema ASSESSMENT AND PLAN: 28 y/o man with h/o psychiatric illness who presented with abd pain x 5 days . 1- Abd pain, still unclear etiology. KUB with no contrast in R colon - check CT of abd w/o contrast - cont NPO pending Ct scan results. if neg might feed patient - US and KUB reviewed. - Hep panel indicates immunity to Hep B 2- Psychiatric illness: - Cont his psych meds - f/u as out pt with psych 3- If CT neg, and if not to dc pt, then will start DVT px
[2018-07-26] MEDS: DEXTROSE 5%-LACTATED RINGERS 1,000 ML IV SCH (15:59)
--- NOTE | 2018-07-26 16:13 | PN ---
Physical Exam: SUBJECTIVE: Patient seen and examined at bedside this morning. No acute events overnight. Patient still reports right sided lateral abdominal pain. Patient denies fever, chills, headache, chest pain, shortness of breath, diarrhea, constipation. OBJECTIVE: Vital Signs Temperature 98.2 F 07/26/18 14:57 Pulse Rate 63 07/26/18 14:57 Respiratory Rate 18 07/26/18 14:57 Blood Pressure 125/70 07/26/18 14:57 O2 Sat by Pulse Oximetry (%) 100 07/25/18 04:00 GENERAL: The patient is awake, alert, and fully oriented, in no acute distress. HEAD: Normal with no signs of trauma. EYES: PERRLA, EOMI, sclera anicteric, conjunctiva clear. ENT: oropharynx clear without exudates, moist mucous membranes. NECK: Trachea midline, full range of motion, supple. LUNGS: Breath sounds equal, clear to auscultation bilaterally. HEART: Regular rate and rhythm, S1, S2 without murmur, rub or gallop. ABDOMEN: Soft, obese, +RUQ tenderness, nondistended, normoactive bowel sounds, no guarding. EXTREMITIES: 2+ pulses, warm, well-perfused, no edema. NEUROLOGICAL: Cranial nerves II through XII grossly intact. Normal speech, gait not observed. PSYCH: Normal mood, normal affect. SKIN: Warm, dry, normal turgor, no rashes or lesions noted Laboratory Results - last 24 hr 07/24/18 05:20 HCV Quantitation Hcv not detected HCV RNA log copies/mL TNP Active Medications Generic Name Dose Route Start Last Admin Trade Name Freq PRN Reason Stop Dose Admin Acetaminophen 1,000 mg 07/24/18 10:41 07/25/18 14:48 Ofirmev Injection - IVPB 1,000 mg Q6H PRN Administration PAIN Alprazolam 0.5 mg 07/24/18 22:00 07/26/18 09:51 Xanax - PO 0.5 mg BID AMIE Administration Dextrose/Lactated Ringer's 1,000 mls @ 100 mls/hr 07/24/18 01:15 07/26/18 15: 59 D5-Lr - IV 100 mls/hr ASDIR AMIE Administration Ibuprofen 400 mg 07/26/18 11:46 Motrin - PO Q6H PRN FEVER Risperidone 1 mg 07/24/18 22:00 07/26/18 09:51 Risperdal - PO 1 mg BID AMIE Administration Trazodone HCl 150 mg 07/24/18 22:00 07/25/18 22:39 Desyrel - PO 150 mg HS AMIE Administration ASSESSMENT/PLAN: Patient is a 28 year old male with history of unspecified psychiatric history, presented to the ED due to a 4-day history of RLQ pain. #RUQ abdominal pain -CTAP: No evidence of acute appendicitis. Equivocal minimal to mild focal wall thickening along the middle third of appendix, may be artifactual. Prominent diffuse hepatic steatosis. Minimal to mild splenomegaly. -Surgery (Dr. Zuniga) consulted -Will observe patient while off antibiotics -IV hydration -NPO except meds for now -Pain control with Tylenol and motrin -RUQ ultrasound - diffuse hepatic steatosis -For CT abdomen/pelvis without contrast -Hep A and B negative, HCV pending #Transaminitis: improved -Continue IV fluids #Psychiatric history -follows up with Dr. Lisa Obrien -Continue home Risperidone, Trazodone and Alprazolam #Morbid obesity -Administration Clerk on lifestyle modifications #FEN -IV LR @100cc/hr -Electrolytes wnl, routine bmp monitoring -NPO except meds #Prophylaxis -Early ambulation -will hold chemical ppx for possible surgery #Disposition -full code -med surg obs Visit type - Emergency Visit Emergency Visit: Yes ED Registration Date: 07/24/18 Care time: The patient presented to the Emergency Department on the above date and was hospitalized for further evaluation of their emergent condition. - New Patient This patient is new to me today: No - Critical Care Critical Care patient: No
[2018-07-26 21:33] LABS: URINE APPEARANCE CLEAR; URINE BILIRUBIN NEGATIVE (NEGATIVE); URINE COLOR YELLOW; URINE GLUCOSE (UA) NEGATIVE (NEGATIVE); URINE KETONE TRACE (NEGATIVE); URINE LEUK ESTERASE NEGATIVE (NEGATIVE); URINE NITRITE NEGATIVE (NEGATIVE); URINE PROTEIN NEGATIVE (NEGATIVE)
[2018-07-26] MEDS: traZODone HCL 50 MG TABLET (FP) PO SCH (21:40)
[2018-07-27] MEDS: DEXTROSE 5%-LACTATED RINGERS 1,000 ML IV SCH (03:24)
[2018-07-27] MEDS: ALPRAZolam 0.25 MG TABLET PO SCH (09:22)
[2018-07-27] MEDS: risperiDONE 1 MG TABLET (FP) PO SCH (09:22)
--- NOTE | 2018-07-27 10:11 | PN ---
Teaching Attending Note Name of Resident: Namita Healy ATTENDING PHYSICIAN STATEMENT I saw and evaluated the patient. I reviewed the resident's note and discussed the case with the resident. I agree with the resident's findings and plan as documented. SUBJECTIVE: No fever or chills. No CHU .R LQ pain is much better today. OBJECTIVE: NAD. CV: RRR, no MRG Lungs: CTAB Abd: soft, TTP in RLQ . no rebound tenderness. Ext: no edema ASSESSMENT AND PLAN: 28 y/o man with h/o psychiatric illness who presented with abd pain x 5 days . 1- Abd pain, still unclear etiology. - CT scan pending read. - will decide on next step later 2- Psychiatric illness: - Cont his psych meds - f/u as out pt with psych dispo: depends on results
[2018-07-27 10:26] VITALS: BMI 46.4
[2018-07-27] MEDS ORDERED: ACETAMINOPHEN 325 MG TABLET (FP) PO PRN (11:19)
--- NOTE | 2018-07-27 11:28 | PN ---
Progress Note, Physician History of Present Illness: Pt with RLQ pain, started after eating meal with fish bones. Had repeat CT yesterday without contrast to look for possible FB; no evidence of same visible on scan, though there is tiny amount of residual contrast in cecum, and some in rectum. Not appendicitis. Pt seen and examined in bed, mother at bedside. Pt indicates less pain, has been better this morning. Ambulating, voiding, had liquid BM earlier (still evacuating contrast). Walking and moving with less pain. - Current Medication List Current Medications: Active Medications Acetaminophen (Ofirmev Injection -) 1,000 mg IVPB Q6H PRN PRN Reason: PAIN Last Admin: 07/25/18 14:48 Dose: 1,000 mg Alprazolam (Xanax -) 0.5 mg PO BID [facility] Last Admin: 07/27/18 09:22 Dose: 0.5 mg Dextrose/Lactated Ringer's (D5-Lr -) 1,000 mls @ 100 mls/hr IV ASDIR [facility] Last Admin: 07/27/18 03:24 Dose: 100 mls/hr Ibuprofen (Motrin -) 400 mg PO Q6H PRN PRN Reason: FEVER Risperidone (Risperdal -) 1 mg PO BID [facility] Last Admin: 07/27/18 09:22 Dose: 1 mg Trazodone HCl (Desyrel -) 150 mg PO HS [facility] Last Admin: 07/26/18 21:40 Dose: 150 mg - Objective Vital Signs: Vital Signs Temperature 98.4 F 07/27/18 06:00 Pulse Rate 57 L 07/27/18 06:00 Respiratory Rate 18 07/27/18 06:35 Blood Pressure 123/74 07/27/18 06:00 O2 Sat by Pulse Oximetry (%) 100 07/25/18 04:00 Constitutional: Yes: No Distress, Calm, Obese Eyes: Yes: Conjunctiva Clear, EOM Intact HENT: Yes: Atraumatic, Normocephalic Gastrointestinal: Yes: Soft, Abdomen, Obese, Tenderness (mild RLQ, suprapubic - less than previous). No: Tenderness, Rebound Extremities: No: Cool, Cyanosis Integumentary: No: Jaundice, Rash Neurological: Yes: Alert, Oriented. No: Unsteady Gait Labs: no new labs - ....Imaging Cat Scan: Report Reviewed, Image Reviewed (images reviewed - no FB identified in right abdomen or elsewhere, tiny amount of residual contrast in cecum, could obscure; appendix appears normal) Problem List - Problems (1) Right lower quadrant abdominal pain Assessment/Plan: admitted to medicine no antibiotics, no narcotics, has been NPO/IVF imaging, history and exam not consistent with appendicitis given pt's association of onset of symptoms shortly after having eaten meal with small fish bones, considered FB microperforation or bone lodged in bowel, but obscured by enteral contrast on CT scan repeat CT without contrast does not show any clear evidence of FB, though tiny amount of contrast still in cecum pt with less pain, improved exam, decreased tenderness hungry start full liquids, may advance at dinner if tolerating advised patient to f/u with PMD - he indicates he has not yet seen new one at [address] [place] [phone] (does not know name) if his symptoms return or persist in another week or so, could consider outpatient reimaging, but would do without oral contrast first no need for surgical followup, presuming he tolerates diet discussed with medical team Code(s): R10.31 - RIGHT LOWER QUADRANT PAIN (2) Right lower quadrant abdominal tenderness without rebound tenderness Assessment/Plan: improved Code(s): R10.813 - RIGHT LOWER QUADRANT ABDOMINAL TENDERNESS (3) Morbid obesity with BMI of 45.0-49.9, adult Code(s): E66.01 - MORBID (SEVERE) OBESITY DUE TO EXCESS CALORIES; Z68.42 - BODY MASS INDEX (BMI) 45.0-49.9, ADULT
[2018-07-27 18:51] VITALS: BP 116/74; PULSE 73; TEMP 97.8
--- NOTE | 2018-07-27 19:18 | DS ---
Physical Exam: SUBJECTIVE: Patient seen and examined patient resting in bed nad, afebrile hemodynamically stable. no acute events overnight. reports minilar rlq pain. tolerates regular diet w/o n/v or increased pain. no bm x 2 days + flatus. OBJECTIVE: Vital Signs Period Temp Pulse Resp BP Sys/[place] Pulse Ox Last 24 Hr 97.8 F-98.4 F 50-77 18-18 116-142/60-77 98 PHYSICAL EXAM GENERAL: The patient is awake, alert, and fully oriented, in no acute distress. HEAD: Normal with no signs of trauma. EYES: PERRL, extraocular movements intact, sclera anicteric, conjunctiva clear. ENT: moist mucous membranes. NECK: supple. LUNGS: Breath sounds equal, clear to auscultation bilaterally, HEART: Regular rate and rhythm, S1, S2 ABDOMEN: Soft, mildly tender rlq, nondistended, normoactive bowel sounds, no guarding, no rebound, no hepatosplenomegaly, no masses. EXTREMITIES: 2+ pulses, warm, well-perfused, no edema. NEUROLOGICAL: Cranial nerves II through XII grossly intact. Normal speech, gait not observed. PSYCH: Normal mood, normal affect. SKIN: Warm, dry LABS Laboratory Results - last 24 hr 07/26/18 19:15 Urine Color Yellow Urine Appearance Clear Urine pH 6.0 Ur Specific [place] 1.014 Urine Protein Negative Urine Glucose (UA) Negative Urine Ketones Trace H Urine Blood Negative Urine Nitrite Negative Urine Bilirubin Negative Urine Urobilinogen 1.0 Ur Leukocyte Esterase Negative HOSPITAL COURSE: Date of Admission:07/24/18 Patient is a 28 y/o M w/ PMHx unspecified psychiatric issue on alprazolam, risperidone, trazodone, p/w RLQ pain x 4 days without relief. Normal BMs, no n/v , no other complaints or changes from USOH. Afebrile w/ stable vitals on presentation, labs only remarkable for AST [address] a/p showed no definitive evidence of acute appendicitis, minimal to mild focal wall thickening , and diffuse hepatic steatosis. Sx was consulted by ED and requested observation. Patient endorsed that his last meal consisted of fish with small bones so various imaging including repeat CT abdomen with contrast was ordered to r/o fish bone perf, all of which was unremarkable. patients pain subsided spontaneously and he tolerated regular diet so was dcd home. Date of Discharge: 07/27/18 Minutes to complete discharge: 30 Discharge Summary Reason For Visit: ABDOMINAL PAIN Condition: Stable - Instructions Diet, Activity, Other Instructions: Your visit You were admitted to the hospital because you have been having stomach pain. CAT scan was done and was negative of any concerns. You were evaluated by surgery. Medications Continue your home medications Followup Please follow up with your primary care physician within 1 week. You may call the resident medical clinic at [phone] to schedule an appointment Please follow up with your psychiatrist (Dr. Obrien) as scheduled. Additional info Call 911 or go to the ED if with any worsening fever, chills, headache, dizziness, chest pain, shortness of breath, diarrhea, bloody stools or any new concerns noted. If your pain continues, please schedule appointment with Dr. Zuniga in her office. as you might need a repeat CT scan of your abdomen. if symptoms are bad or having fevers , please come back to ER . Referrals: [facility] [place] Group] Lisa Obrien MD [Non Staff, Medical] - Brian Zuniga MD [Staff Physician] - Disposition: HOME - Home Medications Comprehensive Discharge Medication List: Ambulatory Orders Alprazolam 0.5 mg PO BID 07/24/18 Risperidone [Risperdal -] 1 mg PO BID 07/24/18 Trazodone HCl 150 mg PO HS 07/24/18 Problem List - Problems (1) Abdominal pain Code(s): R10.9 - UNSPECIFIED ABDOMINAL PAIN Qualifiers: Abdominal location: right lower quadrant Qualified Code(s): R10.31 - Right lower quadrant pain (2) Right lower quadrant abdominal pain Code(s): R10.31 - RIGHT LOWER QUADRANT PAIN (3) Morbid obesity with BMI of 45.0-49.9, adult Code(s): E66.01 - MORBID (SEVERE) OBESITY DUE TO EXCESS CALORIES; Z68.42 - BODY MASS INDEX (BMI) 45.0-49.9, ADULT This patient is new to me today: Yes Date on this admission: 07/27/18 Emergency Visit: Yes ED Registration Date: 07/24/18 Care time: The patient presented to the Emergency Department on the above date and was hospitalized for further evaluation of their emergent condition. Critical Care patient: No - Discharge Referral Referred to [facility] Med P.C.: No
== END 2018-07-27 19:11 | disposition home or self-care (01) ==
LOC: JER 18:34 → JERBED 07-24 00:22 → J8W 07-24 13:16
PROVIDERS: ADMIT Internal Medicine; ATTEND Internal Medicine
PROC: 3E033NZ Introduction of Analgesics, Hypnotics, Sedatives into Peripheral Vein, Percutaneous Approach (ICD-10-PCS; principal; 2018-07-24)
PROC: 3E0337Z Introduction of Electrolytic and Water Balance Substance into Peripheral Vein, Percutaneous Approach (ICD-10-PCS; 2018-07-24)
DX: R10.31 Right lower quadrant pain (principal); R10.813 Right lower quadrant abdominal tenderness; R74.0 Nonspecific elevation of levels of transaminase and lactic acid dehydrogenase [LDH]; E66.01 Morbid (severe) obesity due to excess calories; Z68.42 Body mass index [BMI] 45.0-49.9, adult; R16.2 Hepatomegaly with splenomegaly, not elsewhere classified; D47.2 Monoclonal gammopathy; F99 Mental disorder, not otherwise specified
CPT/HCPCS: 36415; 74018-TC-FY; 74176-TC; 74177-TC; 76705-TC; 80048; 80053; 81003; 83690; 83735; 84100; 85025; 85610; 85730; 86704; 86706; 86708; 86850; 86900; 86901; 87086; 87340; 87522; 90688; 93005; 93010; 96361; 96374; 96376; 99283-25; G0378; J0131; J2794; J7030; Q9967

== ENCOUNTER 2018-12-03 16:20 | Emergency (ER) | payer OTHER ==
[2018-12-03 16:32] VITALS: BP 134/76; PULSE 62; TEMP 97.6; BMI 47.7
[2018-12-03] MEDS ORDERED: SODIUM CHLORIDE 1,000 ML IV STA (16:46)
[2018-12-03] MEDS ORDERED: ONDANSETRON 4 MG/2 ML VIAL IVPUSH ONE (16:46)
[2018-12-03] MEDS ORDERED: ACETAMINOPHEN 1000 MG/100 ML VIAL (NON FORMULARY) IVPB ONE (16:47)
--- NOTE | 2018-12-03 16:48 | PDOC ---
Rapid Medical Evaluation Chief Complaint: Pain, Acute Time Seen by Provider: 12/03/18 16:45 Medical Evaluation: Allergies Allergy/AdvReac Type Severity Reaction Status Date / Time shrimp Allergy Verified 12/03/18 16:32 Vital Signs Temp Pulse Resp BP Pulse Ox 97.6 F 62 14 134/76 100 12/03/18 16:31 12/03/18 16:31 12/03/18 16:31 12/03/18 16:31 12/03/18 16:31 12/03/18 16:47 The patient presents with a chief complaint of: rlq pain with nausea I have performed a brief in-person evaluation of this patient. Pertinent physical exam findings: rlq tenderness, no cva tenderness, vss I have ordered the following: labs, urine, and ct, ivf, zofran, iv tylenol The patient will proceed to the ED for further evaluation. Discharge Disposition - Diagnosis Abdominal pain - Referrals - Patient Instructions - Post Discharge Activity
--- NOTE | 2018-12-03 17:05 | PDOC ---
History of Present Illness - General Chief Complaint: Pain, Acute Stated Complaint: RT LWR QUAD ABD PAIN Time Seen by Provider: 12/03/18 16:45 History Source: Patient - History of Present Illness Timing/Duration: reports: intermittent Quality: reports: moderate Abdominal Pain Onset Location: reports: RLQ Past History - Past Medical History Allergies/Adverse Reactions: Allergies Allergy/AdvReac Type Severity Reaction Status Date / Time shrimp Allergy Verified 12/03/18 16:32 Home Medications: Ambulatory Orders Alprazolam 0.5 mg PO BID 07/24/18 Risperidone [Risperdal -] 1 mg PO BID 07/24/18 Trazodone HCl 150 mg PO HS 07/24/18 Asthma: Yes COPD: No - Suicide/Smoking/Psychosocial Hx Smoking History: Never smoked Have you smoked in the past 12 months: No Hx Alcohol Use: No Drug/Substance Use Hx: No Substance Use Type: None Hx Substance Use Treatment: No Review of Systems - Review of Systems Constitutional: No: Chills, Fever ABD/GI: Yes: Nausea, Abdominal cramping. No: Blood Streaked Bowels, Constipated , Diarrhea, Rectal Bleeding, Vomiting : No: Dysuria *Physical Exam - Vital Signs Last Vital Signs Temp Pulse Resp BP Pulse Ox 97.6 F 62 14 134/76 100 12/03/18 16:31 12/03/18 16:31 12/03/18 16:31 12/03/18 16:31 12/03/18 16:31 - Physical Exam General Appearance: Yes: Appropriately Dressed. No: Apparent Distress HEENT: positive: Normal Voice Neck: positive: Supple Respiratory/Chest: negative: Respiratory Distress Gastrointestinal/Abdominal: positive: Normal Bowel Sounds, Tender (minimal ttp to RLQ), Soft. negative: Distended, Guarding, Rebound, Hernia Musculoskeletal: negative: CVA Tenderness Integumentary: positive: Dry, Warm Neurologic: positive: Fully Oriented, Alert, Normal Mood/Affect ED Treatment Course - LABORATORY CBC & Chemistry Diagram: 12/03/18 17:02 12/03/18 17:02 Medical Decision Making - Medical Decision Making 12/03/18 17:05 28 yo M, morbidly obesed, unspecified psych d/o, here w/ RLQ x 3 days, on and off. Became nauseous today, no vomiting, change in BM, dysuria, f/c. Patient was admitted for RLQ ~ 4 months ago w/ neg finding on multiple imaging. Patient states pain resolved but has now re-occured and feels different from pain on prior visit. States he is allergic to shrimp, but was given IV contrast with CT with no complications see exam R/o appy Was admitted for RLQ pain 4 month ago w/ neg findings on CT -pain control -labs -CT -dispo pending 12/03/18 18:58 Signed out to 7pm provider pending CT read. Labs neg 12/03/18 19:10 CT read as neg for appy. Pt states he has only mild pain now. Dc w/ OTC meds and GI f/u *DC/Admit/Observation/Transfer Diagnosis at time of Disposition: Right lower quadrant abdominal pain - Discharge Dispostion Disposition: HOME Condition at time of disposition: Good - Referrals Referrals: Raheem Cordero MD [Staff Physician] - - Patient Instructions Additional Instructions: Your CT scan and labs were negative here Please follow up with Dr Cordero of GI - Post Discharge Activity
[2018-12-03 17:27] LABS: BASO % 0.2 % (0-2.0); EOS % 1.7 % (0-4.5); HEMATOCRIT 48.7 % (35.4-49); LYMPH % 33.3 % (8-40); MCH 27.4 pg (25.7-33.7); MCHC 32.8 g/dl (32.0-35.9); MEAN CELL VOLUME 83.6 fl (80-96); MEAN PLT VOLUME 8.5 fl (7.5-11.1); MONO % 7.8 % (3.8-10.2); PLATELET COUNT 225 K/MM3 (134-434); RBC 5.82 M/mm3 (4.00-5.60); RDW 14.4 % (11.9-15.9)
[2018-12-03 17:38] LABS: PH,URINE 6.5 (5.0-8.0); URINE APPEARANCE CLEAR; URINE BILIRUBIN NEGATIVE (NEGATIVE); URINE COLOR YELLOW; URINE GLUCOSE (UA) NEGATIVE (NEGATIVE); URINE KETONE NEGATIVE (NEGATIVE); URINE LEUK ESTERASE NEGATIVE (NEGATIVE); URINE NITRITE NEGATIVE (NEGATIVE); URINE PROTEIN NEGATIVE (NEGATIVE); URINE UROBILINOGEN 0.2 mg/dL (0.2-1.0)
[2018-12-03] MEDS ORDERED: ONDANSETRON 4 MG/2 ML VIAL ONE (17:42)
[2018-12-03] MEDS ORDERED: ACETAMINOPHEN INJECTION 100 ML IVPB ONE (17:42)
[2018-12-03 18:01] LABS: ALBUMIN 4.5 g/dl (3.4-5.0); BILIRUBIN,TOTAL 0.4 mg/dL (0.2-1); BLOOD UREA NITROGEN 16.4 mg/dL (7-18); CALCIUM 9.7 mg/dL (8.5-10.1); CREATININE 1.2 mg/dL (0.55-1.3); MAGNESIUM 2.3 mg/dL (1.8-2.4); POTASSIUM 4.7 mmol/L (3.5-5.1); TOT PROT 7.9 g/dl (6.4-8.2)
== END 2018-12-03 19:15 | disposition home or self-care (01) ==
LOC: JER 16:20
PROC: 3E033NZ Introduction of Analgesics, Hypnotics, Sedatives into Peripheral Vein, Percutaneous Approach (ICD-10-PCS; principal; 2018-12-03)
PROC: 3E033GC Introduction of Other Therapeutic Substance into Peripheral Vein, Percutaneous Approach (ICD-10-PCS; 2018-12-03)
DX: R10.31 Right lower quadrant pain (principal); E66.01 Morbid (severe) obesity due to excess calories; Z68.42 Body mass index [BMI] 45.0-49.9, adult
CPT/HCPCS: 36415; 74177-TC; 80053; 81003; 83605; 83690; 83735; 85025; 87086; 96374; 96375; 99283-25; J0131; J7030